=== PATIENT | female | born 1990 | race Caucasian/White ===

== ENCOUNTER 2016-11-26 02:32 | Emergency (ER) | payer SELFPAY ==
[2016-11-26 02:56] VITALS: BP 126/79; PULSE 88; TEMP 97.6; BMI 29.1
[2016-11-26 03:00] LABS: URINE APPEARANCE CLOUDY; URINE BILIRUBIN NEGATIVE (NEGATIVE); URINE BLOOD NEGATIVE (NEGATIVE); URINE COLOR YELLOW; URINE GLUCOSE (UA) NEGATIVE (NEGATIVE); URINE KETONE NEGATIVE (NEGATIVE); URINE NITRITE NEGATIVE (NEGATIVE); URINE PROTEIN NEGATIVE (NEGATIVE); URINE UROBILINOGEN NEGATIVE E.U./dl (0.2-1.0)
[2016-11-26 03:04] LABS: URINE LEUK ESTERASE 1+ (NEGATIVE)
[2016-11-26 03:05] LABS: URINE BACTERIA RARE /hpf (NONE SEEN); URINE MUCUS FEW; URINE RBC 2 /hpf (0-3); URINE WBC 5 /hpf (3-5)
--- NOTE | 2016-11-26 03:10 | PDOC ---
History of Present Illness - General History Source: Patient Exam Limitations: No Limitations - History of Present Illness Initial Comments: 11/26/16 03:36 The patient is a 26 year old female with no significant past medical history who presents to the ED for 2 months of persistent abdominal pain. Patient reports she initially developed pain to the pelvic region that has now radiated up to the left upper quadrant. She describes her pain as a weird feeling with associated nausea, but no vomiting or diarrhea. She also reports decreased appetite. No exacerbating or alleviating factors. The patient denies fever, chills, cough, SOB, chest pain, and palpitations. The patient denies dysuria, hematuria, urgency, and frequency. Allergies: NKDA Social History: No alcohol, tobacco, or drug use reported. Past Surgical History: None reported PCP: None reported <Erica Stallings - Last Filed: 11/26/16 03:36> - General History Source: Patient <Nguyễn Garcia - Last Filed: 11/26/16 04:14> - General Chief Complaint: Pain Stated Complaint: ABD PAIN Time Seen by Provider: 11/26/16 03:07 Past History <Erica Stallings - Last Filed: 11/26/16 03:36> - Past Medical History Anemia: No Asthma: No Cancer: No Cardiac Disorders: No CVA: No COPD: No CHF: No Dementia: No Diabetes: No GI Disorders: No Disorders: No HTN: No Hypercholesterolemia: No Liver Disease: No Suicide Attempt (Hx): No Seizures: No Thyroid Disease: No - Reproductive History Is Patient Now?: No (#): 1 Para: 0 - Immunization History Immunization Up to Date: Yes - Psycho/Social/Smoking Cessation Hx Anxiety: No Suicidal Ideation: No Smoking Status: No Smoking History: Never smoked Years of Tobacco Use: 4 Have you smoked in the past 12 months: No Number of Cigarettes Smoked Daily: 5 If you are a former smoker, when did you quit?: 2 WEEKS AGO Cigars Per Day: 0 Information on smoking cessation initiated: No 'Breaking Loose' booklet given: 03/23/14 Hx Alcohol Use: No Drug/Substance Use Hx: No Substance Use Type: None <Nguyễn Garcia - Last Filed: 11/26/16 04:14> - Past Medical History Allergies/Adverse Reactions: Allergies Allergy/AdvReac Type Severity Reaction Status Date / Time No Known Allergies Allergy Verified 11/26/16 02:45 Home Medications: Ambulatory Orders NK [No Known Home Medication] 11/26/16 Review of Systems - Review of Systems Able to Perform ROS?: Yes Comments:: 11/26/16 03:36 CONSTITUTIONAL: +decreased appetite Absent: fever, no chills, no fatigue EYES: Absent: visual changes ENT: Absent: ear pain, no sore throat CARDIOVASCULAR: Absent: chest pain, no palpitations RESPIRATORY: Absent: cough, no SOB GI: +abdominal pain, nausea Absent: no vomiting, no constipation, no diarrhea GENITOURINARY: Absent: dysuria, no frequency, no hematuria MUSCULOSKELETAL: Absent: back pain, no arthralgia, no myalgia SKIN: Absent: rash NEURO: Absent: headache <Erica Stallings - Last Filed: 11/26/16 03:36> *Physical Exam - Vital Signs Last Vital Signs Temp Pulse Resp BP Pulse Ox 97.6 F 88 20 126/79 99 11/26/16 02:45 11/26/16 02:45 11/26/16 02:45 11/26/16 02:45 11/26/16 02:45 - Physical Exam Comments: 11/26/16 03:36 GENERAL: Well-appearing, well-nourished. No apparent distress. HEENT: Normocephalic, atraumatic. PERRL, EOM intact. CARDIOVASCULAR: Normal S1, S2. Regular rate and rhythm. PULMONARY: Clear to auscultation bilaterally. ABDOMEN: Soft, non-distended, non-tender. EXTREMITIES: Normal ROM in all four extremities. No gross deformities. SKIN: Warm, dry. No rash NEUROLOGICAL: No focal neurological deficits. <Erica Stallings - Last Filed: 11/26/16 03:36> - Vital Signs Last Vital Signs Temp Pulse Resp BP Pulse Ox 97.6 F 88 20 126/79 99 11/26/16 02:45 11/26/16 02:45 11/26/16 02:45 11/26/16 02:45 11/26/16 02:45 <Nguyễn Garcia - Last Filed: 11/26/16 04:14> ED Treatment Course - LABORATORY CBC & Chemistry Diagram: 11/26/16 03:19 11/26/16 03:19 - ADDITIONAL ORDERS Additional order review: Laboratory Results 11/26/16 02:51 Urine Color Yellow Urine Appearance Cloudy Urine pH 5.0 Urine Protein Negative Urine Glucose (UA) Negative Urine Ketones Negative Urine Blood Negative Urine Nitrite Negative Urine Bilirubin Negative Urine Urobilinogen Negative Ur Leukocyte Esterase 1+ H Urine RBC 2 Urine WBC 5 Ur Epithelial Cells Many Urine Bacteria Rare Urine Mucus Few Urine HCG, Qual Negative 11/26/16 03:19 RBC 4.81 MCV 88.7 MCHC 33.0 RDW 13.4 MPV 8.7 Neutrophils % 70.0 Lymphocytes % 23.9 Monocytes % 4.3 Eosinophils % 1.3 Basophils % 0.5 - Medications Given in the ED: ED Medications Discontinued Medications Generic Name Dose Route Start Last Admin Trade Name Tarunq PRN Reason Stop Dose Admin Metoclopramide HCl 10 mg 11/26/16 03:14 11/26/16 03:23 Reglan Injection - IVPUSH 11/26/16 03:15 10 mg ONCE ONE Administration <Erica Stallings - Last Filed: 11/26/16 03:36> - LABORATORY CBC & Chemistry Diagram: 11/26/16 03:19 11/26/16 03:19 - ADDITIONAL ORDERS Additional order review: Laboratory Results 11/26/16 02:51 Urine Color Yellow Urine Appearance Cloudy Urine pH 5.0 Urine Protein Negative Urine Glucose (UA) Negative Urine Ketones Negative Urine Blood Negative Urine Nitrite Negative Urine Bilirubin Negative Urine Urobilinogen Negative Ur Leukocyte Esterase 1+ H <Nguyễn Garcia - Last Filed: 11/26/16 04:14> Medical Decision Making - Medical Decision Making 11/26/16 04:12 Dr. Garcia: The scribe's documentation has been prepared under my direction and personally reviewed by me in its entirery. I confirm that the note above accurately reflects all work, treatment, procedures, and medical decision making performed by me. Pt feels better. PT will be discharged and follow up with her pcp or the doctor referred to her <Nguyễn Garcia - Last Filed: 11/26/16 04:14> *DC/Admit/Observation/Transfer - Attestations Scribe Attestion: 11/26/16 03:36 Documentation prepared by Erica Stallings, acting as certified medical aide for Nguynễ Garcia MD/. <Erica Stallings - Last Filed: 11/26/16 03:36> - Discharge Dispostion Admit: No <Nguyễn Garcia - Last Filed: 11/26/16 04:14> Diagnosis at time of Disposition: Abdominal pain Qualifiers: Abdominal location: generalized Qualified Code(s): R10.84 - Generalized abdominal pain - Discharge Dispostion Disposition: HOME Condition at time of disposition: Stable - Referrals Referrals: Michaela Merino MD [Staff Physician] - Federico Sage DO [Staff Physician] - - Patient Instructions Printed Discharge Instructions: DI for Abdominal Pain-Adult
[2016-11-26] MEDS ORDERED: METOCLOPRAMIDE HCL INJECTION 10 MG/2 ML VIAL IVPUSH ONE (03:14)
[2016-11-26] MEDS ORDERED: SODIUM CHLORIDE 1,000 ML IV STA (03:14)
[2016-11-26 03:23] LABS: BASOPHIL 0.5 % (0-2.0); EOSINOPHIL 1.3 % (0-4.5); MCH 29.3 pg (25.7-33.7); MEAN CELL VOLUME 88.7 fl (80-96); MEAN PLT VOLUME 8.7 fl (7.5-11.1); PLATELET COUNT 223 K/MM3 (134-434); RDW 13.4 % (11.6-15.6); WHITE BLOOD COUNT 12.1 K/mm3 (4.0-10.0)
[2016-11-26] MEDS ORDERED: METOCLOPRAMIDE HCL INJECTION 10 MG/2 ML VIAL ONE (03:23)
[2016-11-26 03:56] LABS: ALBUMIN 3.8 g/dl (3.4-5.0); ANION GAP 7 (8-16); BILIRUBIN,TOTAL 0.3 mg/dL (0.2-1.0); CALCIUM 9.1 mg/dL (8.5-10.1); CO2 28 mmol/L (21-32); CREATININE 0.9 mg/dL (0.55-1.02); GLUCOSE,RANDOM 145 mg/dL (74-106); SGOT/AST 16 U/L (15-37); SGPT/ALT 24 U/L (12-78); TOT PROT 7.3 g/dl (6.4-8.2)
[2016-11-26 03:59] LABS: ALK PHOS 114 U/L (45-117)
== END 2016-11-26 04:19 | disposition home or self-care (01) ==
LOC: JER 02:32
PROC: 3E033GC Introduction of Other Therapeutic Substance into Peripheral Vein, Percutaneous Approach (ICD-10-PCS; principal; 2016-11-26)
DX: R10.84 Generalized abdominal pain (principal)
CPT/HCPCS: 36415; 80053; 81003; 81015; 84702; 84703; 85025; 87086; 99283-25

== ENCOUNTER 2019-01-18 14:10 | Emergency (ER) | payer SELFPAY ==
[2019-01-18 14:15] VITALS: BP 116/71; PULSE 114; TEMP 98.4; BMI 25.0
[2019-01-18] MEDS ORDERED: ACETAMINOPHEN 325 MG TABLET (FP) PO ONE (14:32)
--- NOTE | 2019-01-18 14:53 | PDOC ---
History of Present Illness - General Chief Complaint: Pain, Acute Stated Complaint: ABD PAIN Time Seen by Provider: 01/18/19 14:26 History Source: Patient Exam Limitations: No Limitations Past History - Past Medical History Allergies/Adverse Reactions: Allergies Allergy/AdvReac Type Severity Reaction Status Date / Time No Known Allergies Allergy Verified 01/18/19 14:15 Home Medications: Ambulatory Orders NK [No Known Home Medication] 11/26/16 Anemia: No Asthma: No Cancer: No Cardiac Disorders: No CVA: No COPD: No CHF: No Dementia: No Diabetes: No GI Disorders: No Disorders: No HTN: No Hypercholesterolemia: No Liver Disease: No Seizures: No Thyroid Disease: No - Reproductive History (#): 1 Para: 0 - Immunization History Immunization Up to Date: Yes - Suicide/Smoking/Psychosocial Hx Smoking Status: No Smoking History: Current every day smoker Years of Tobacco Use: 4 Have you smoked in the past 12 months: Yes Number of Cigarettes Smoked Daily: 10 If you are a former smoker, when did you quit?: 2 WEEKS AGO Cigars Per Day: 0 Information on smoking cessation initiated: No 'Breaking Loose' booklet given: 03/23/14 Hx Alcohol Use: Yes Drug/Substance Use Hx: Yes Substance Use Type: None *Physical Exam - Vital Signs Last Vital Signs Temp Pulse Resp BP Pulse Ox 98.4 F 114 H 14 116/71 98 01/18/19 14:12 01/18/19 14:12 01/18/19 14:12 01/18/19 14:12 01/18/19 14:12 - Physical Exam General Appearance: No: Apparent Distress Respiratory/Chest: positive: Lungs Clear, Normal Breath Sounds. negative: Respiratory Distress Cardiovascular: positive: Regular Rhythm, Regular Rate, S1, S2. negative: Murmur Gastrointestinal/Abdominal: positive: Normal Bowel Sounds, Soft. 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 Did a home test yesterday and it was positive. Denies fever, sob, cp, vomiting, diarrhea, urinary complaints, vaginal bleeding. 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 Dia - recommends patient return to ED in 2 days for repeat blood work 01/18/19 18:06 *DC/Admit/Observation/Transfer Diagnosis at time of Disposition: Abdominal pain affecting - Discharge Dispostion Disposition: HOME Condition at time of disposition: Stable Decision to Admit order: No - Referrals - Patient Instructions Printed Discharge Instructions: DI for Abdominal Pain -- Early Additional Instructions: Thank you for choosing [facility]. It was a pleasure taking care of you. Your hormone levels are low and there is no current evidence of . This could be early Please return to ED in 2 days for repeat blood work Return to the Emergency Department if your symptoms worsen or persist, have heavy vaginal bleeding or other concerning symptoms. - Post Discharge Activity
[2019-01-18 15:20] LABS: BASO % 0.5 % (0-2.0); EOS % 0.6 % (0-4.5); HEMATOCRIT 40.1 % (32.4-45.2); HEMOGLOBIN 13.5 GM/dL (10.7-15.3); LYMPH % 24.9 % (8-40); MCH 30.5 pg (25.7-33.7); MCHC 33.7 g/dl (32.0-36.0); MEAN CELL VOLUME 90.4 fl (80-96); MONO % 7.2 % (3.8-10.2); NEUT % 66.8 % (42.8-82.8); PLATELET COUNT 238 K/MM3 (134-434); RBC 4.43 M/mm3 (3.60-5.2)
[2019-01-18 15:30] LABS: URINE APPEARANCE CLEAR; URINE BILIRUBIN NEGATIVE (NEGATIVE); URINE COLOR YELLOW; URINE GLUCOSE (UA) NEGATIVE (NEGATIVE); URINE KETONE TRACE (NEGATIVE); URINE LEUK ESTERASE NEGATIVE (NEGATIVE); URINE NITRITE NEGATIVE (NEGATIVE); URINE PROTEIN NEGATIVE (NEGATIVE)
[2019-01-18] MEDS ORDERED: ACETAMINOPHEN 325 MG TABLET (FP) ONE (15:37)
[2019-01-18 16:27] LABS: ALBUMIN 3.9 g/dl (3.4-5.0); BILIRUBIN,TOTAL 0.4 mg/dL (0.2-1); BLOOD UREA NITROGEN 12.9 mg/dL (7-18); CALCIUM 9.3 mg/dL (8.5-10.1); CREATININE 0.8 mg/dL (0.55-1.3); POTASSIUM 4.7 mmol/L (3.5-5.1)
== END 2019-01-18 18:31 | disposition home or self-care (01) ==
LOC: JER 14:10
DX: O26.899 Other specified pregnancy related conditions, unspecified trimester (principal); Z3A.00 Weeks of gestation of pregnancy not specified
CPT/HCPCS: 36415; 76830-TC; 80053; 81003; 84702; 84703; 85025; 99284-25

== ENCOUNTER 2019-01-20 13:21 | Emergency (ER) | payer SELFPAY ==
--- NOTE | 2019-01-20 13:30 | PDOC ---
Rapid Medical Evaluation Chief Complaint: Pain, Acute Time Seen by Provider: 01/20/19 13:28 Medical Evaluation: Allergies Allergy/AdvReac Type Severity Reaction Status Date / Time No Known Allergies Allergy Verified 01/20/19 13:27 01/20/19 13:28 HPI: Bounce back from 2 days ago here for ? f/u here for repeat labs PE: No gross deficits ORDERS: B quant Discharge Disposition - Diagnosis - Referrals - Patient Instructions - Post Discharge Activity
[2019-01-20 13:31] VITALS: BP 138/76; PULSE 99; TEMP 98.5; BMI 25.0
--- NOTE | 2019-01-20 14:04 | PDOC ---
History of Present Illness - General Chief Complaint: Pain, Acute Stated Complaint: ABD. PAIN/ PERGNANT Time Seen by Provider: 01/20/19 13:28 History Source: Patient - History of Present Illness Initial Comments: 01/20/19 14:00 29 year old female , + home test, confirmed 2 days ago here, returned today for bhcg test. Patient complained of abdominal pain 3 days ago that has now subsided some but still present. Denies vaginal bleeding at present. Denies dizziness or dysuria. Timing/Duration: other (3 days) Severity: mild Modifying Factors: improves with: other (no intervention) Associated Symptoms: reports: denies symptoms Aspirin Received prior to arrival: Yes: no aspirin today Asa Contraindications(Core Measure): No: Allergy Beta Khadar Contraindications(Core Measure): Yes: Not Prescribed Beta Khadar Given by EMS(Core Measure): No Beta Khadar Taken at Home(Core Measure): No Beta Khadar Not Indicated at this Time(Core Measure): No Past History - Travel Traveled outside of the country in the last 30 days: No Close contact w/someone who was outside of country & ill: No - Past Medical History Allergies/Adverse Reactions: Allergies Allergy/AdvReac Type Severity Reaction Status Date / Time No Known Allergies Allergy Verified 01/20/19 13:32 Home Medications: Ambulatory Orders Vit No.124/Iron/Folic [ Vitamin Tablet] 1 each PO DAILY #90 tablet 01/20/19 Anemia: No Asthma: No Cancer: No Cardiac Disorders: No CVA: No COPD: No CHF: No Dementia: No Diabetes: No GI Disorders: No Disorders: No HTN: No Hypercholesterolemia: No Liver Disease: No Seizures: No Thyroid Disease: No - Reproductive History (#): 1 Para: 0 - Immunization History Immunization Up to Date: Yes - Suicide/Smoking/Psychosocial Hx Smoking Status: No Smoking History: Never smoked Years of Tobacco Use: 4 Have you smoked in the past 12 months: Yes Number of Cigarettes Smoked Daily: 10 If you are a former smoker, when did you quit?: 2 WEEKS AGO Cigars Per Day: 0 Information on smoking cessation initiated: No 'Breaking Loose' booklet given: 03/23/14 Hx Alcohol Use: No Drug/Substance Use Hx: No Substance Use Type: None Review of Systems - Review of Systems Able to Perform ROS?: Yes Is the patient limited Guamanian proficient: No Constitutional: No: Chills, Fever HEENTM: No: Nose Pain, Nose Congestion, Mouth Pain Respiratory: No: Shortness of Breath, Stridor Cardiac (ROS): No: Chest Pain, Lightheadedness ABD/GI: Yes: Abdominal cramping. No: Constipated, Diarrhea, Poor Appetite : No: Burning, Hematuria, Pain, Urgency Neurological: No: Headache, Numbness, Paresthesia Psychiatric: No: Frequent Crying, Stressors *Physical Exam - Vital Signs Last Vital Signs Temp Pulse Resp BP Pulse Ox 98.5 F 99 H 16 138/76 100 01/20/19 13:29 01/20/19 13:29 01/20/19 13:29 01/20/19 13:29 01/20/19 13:29 - Physical Exam General Appearance: Yes: Nourished HEENT: positive: TMs Normal, Pharynx Normal Neck: positive: Supple. negative: Lymphadenopathy (R), Lymphadenopathy (L), Tender midline Respiratory/Chest: positive: Lungs Clear Cardiovascular: positive: Regular Rhythm, Regular Rate Gastrointestinal/Abdominal: positive: Normal Bowel Sounds Extremity: positive: Normal Capillary Refill Neurologic: positive: Fully Oriented, Alert Medical Decision Making - Medical Decision Making 01/20/19 14:05 29 year old female , + home test, confirmed 2 days ago here, returned today for bhcg test. Plan bhcg sent 01/20/19 14:43 Bhcg 01/18/18 39.2 today 106.8 referred for rx: vitamins *DC/Admit/Observation/Transfer Diagnosis at time of Disposition: Qualifiers: Weeks of gestation: less than 8 weeks Qualified Code(s): Z3A.01 - Less than 8 weeks gestation of - Discharge Dispostion Disposition: HOME Condition at time of disposition: Good - Prescriptions Prescriptions: Vit No.124/Iron/Folic [ Vitamin Tablet] 1 each PO DAILY #90 tablet - Referrals Referrals: Elijah Nance MD [Staff Physician] - (call legal editor for follow up appointment. May call your own if you have ) - Patient Instructions Printed Discharge Instructions: Medications and , Managing Symptoms of Additional Instructions: Please return to emergency department for worsening pain, or if spotting immediately Call your stretcher drier operator/ob for appointment and follow up. Follow up in 2 days for bhcg and if symptoms continue 01/18 [facility] [place] 39.2 01/20 [facility] [place] 106.8 - Post Discharge Activity Forms/Work/School Notes: Back to Work
== END 2019-01-20 14:53 | disposition home or self-care (01) ==
LOC: JERFT 13:21
DX: Z32.01 Encounter for pregnancy test, result positive (principal); Z3A.01 Less than 8 weeks gestation of pregnancy; Z87.891 Personal history of nicotine dependence
CPT/HCPCS: 36415; 84702; 99282-25

== ENCOUNTER 2019-01-25 15:19 | Emergency (ER) | payer SELFPAY ==
--- NOTE | 2019-01-25 15:23 | PDOC ---
Rapid Medical Evaluation Chief Complaint: Revisit, Lab Variance Time Seen by Provider: 01/25/19 15:21 Medical Evaluation: Allergies Allergy/AdvReac Type Severity Reaction Status Date / Time No Known Allergies Allergy Verified 01/20/19 13:32 01/25/19 15:22 HPI: Here for B quant lab work PE: No gross deficits ORDERS: Beta quant Discharge Disposition - Diagnosis - Referrals - Patient Instructions - Post Discharge Activity
[2019-01-25 15:25] VITALS: BP 97/73; PULSE 100; TEMP 98.9; BMI 25.0
--- NOTE | 2019-01-25 18:17 | PDOC ---
History of Present Illness - General Chief Complaint: Revisit, Lab Variance Stated Complaint: REVISIT Time Seen by Provider: 01/25/19 15:21 History Source: Patient Exam Limitations: No Limitations Past History - Travel Traveled outside of the country in the last 30 days: No Close contact w/someone who was outside of country & ill: No - Past Medical History Allergies/Adverse Reactions: Allergies Allergy/AdvReac Type Severity Reaction Status Date / Time No Known Allergies Allergy Verified 01/25/19 15:25 Home Medications: Ambulatory Orders Vit No.124/Iron/Folic [ Vitamin Tablet] 1 each PO DAILY #90 tablet 01/20/19 Anemia: No Asthma: No Cancer: No Cardiac Disorders: No CVA: No COPD: No CHF: No Dementia: No Diabetes: No GI Disorders: No Disorders: No HTN: No Hypercholesterolemia: No Liver Disease: No Seizures: No Thyroid Disease: No Other medical history: LMP 12/05/18 - Reproductive History (#): 1 Para: 0 - Immunization History Immunization Up to Date: Yes - Suicide/Smoking/Psychosocial Hx Smoking Status: No Smoking History: Current every day smoker Years of Tobacco Use: 4 Have you smoked in the past 12 months: Yes Number of Cigarettes Smoked Daily: 10 If you are a former smoker, when did you quit?: 2 WEEKS AGO Cigars Per Day: 0 Information on smoking cessation initiated: No 'Breaking Loose' booklet given: 03/23/14 Hx Alcohol Use: No Drug/Substance Use Hx: No Substance Use Type: None Review of Systems - Review of Systems Able to Perform ROS?: Yes Comments:: 01/25/19 19:17 CONSTITUTIONAL: Absent: fever, chills, diaphoresis, generalized weakness, malaise, loss of appetite HEENT: Absent: rhinorrhea, nasal congestion, throat pain, throat swelling, difficulty swallowing, mouth swelling, ear pain, eye pain, visual Changes CARDIOVASCULAR: Absent: chest pain, loss of consciousness, palpitations, irregular heart rate, peripheral edema RESPIRATORY: Absent: cough, shortness of breath, dyspnea with exertion, orthopnea, wheezing, stridor, hemoptysis GASTROINTESTINAL: Absent: abdominal pain, abdominal distension, nausea, vomiting, diarrhea, constipation, melena, hematochezia GENITOURINARY: Absent: dysuria, frequency, urgency, hesitancy, hematuria, flank pain, genital pain MUSCULOSKELETAL: Absent: myalgia, arthralgia, joint swelling SKIN: Absent: rash, itching, pallor HEMATOLOGIC/IMMUNOLOGIC: Absent: easy bleeding, easy bruising, lymphadenopathy, frequent infections ENDOCRINE: Absent: unexplained weight gain, unexplained weight loss, heat intolerance, cold intolerance NEUROLOGIC: Absent: headache, focal weakness or paresthesias, dizziness, unsteady gait, seizure, mental status changes, bladder or bowel incontinence PSYCHIATRIC: Absent: anxiety, depression, suicidal or homicidal ideation, hallucinations. Is the patient limited Kazakh proficient: No *Physical Exam - Vital Signs Last Vital Signs Temp Pulse Resp BP Pulse Ox 98.9 F 100 H 18 97/73 100 01/25/19 15:22 01/25/19 15:22 01/25/19 15:22 01/25/19 15:22 01/25/19 15:22 - Physical Exam Comments: 01/25/19 19:17 The patient is a 29-year-old female with no past medical history who presents to the ER today for repeat beta hCG and ultrasound. Patient denies vaginal bleeding or abdominal pain. She states that she has been here 2 times and since she has an early they want to make sure her beta hCG is going up. Last menstrual cycle was November 25. A/P: Abdomen is soft nontender with no rebound guarding or tenderness. Repeat beta HCG now 1400 up from 150 repeat ultrasound now with a questionable sac within the uterus Given increased hCG with a finding within the uterus suspect a viable Patient to follow-up with department of clinical social worker to obtain insurance and follow-up with an DEPUTY JUVENILE OFFICER Instructed to return for vaginal bleeding, abdominal pain or if she has any changes in her symptoms I discussed the physical exam findings, ancillary test results and final diagnoses with the patient. I answered all of the patient's questions. The patient was satisfied with the care received and felt comfortable with the discharge plan and treatment plan. The Patient agrees to follow up with the primary care physician/specialist within 24-72 hours. Return precautions were given. ED Treatment Course - ADDITIONAL ORDERS Additional order review: Laboratory Results 01/25/19 16:04 Beta HCG, Quant 1456.2 - RADIOLOGY Radiology Studies Ordered: Category Date Time Status TRANSVAGINAL US PREG [US] Stat Ultrasound 01/25/19 16:47 Completed *DC/Admit/Observation/Transfer Diagnosis at time of Disposition: Qualifiers: Weeks of gestation: less than 8 weeks Qualified Code(s): Z3A.01 - Less than 8 weeks gestation of - Discharge Dispostion Disposition: HOME Condition at time of disposition: Stable Decision to Admit order: No - Referrals Referrals: Liana Sellers MD [Staff Physician] - - Patient Instructions Printed Discharge Instructions: DI for Abdominal Pain -- Early Additional Instructions: Your beta-hCG is now 1400. This is up from 145 days ago. Your ultrasound did show a saclike structure in the uterus Your most likely with an intrauterine . Please follow-up with department of clinical social worker to obtain Medicaid so you can follow-up with an DEPUTY JUVENILE OFFICER. Return to the ER for abdominal pain, vaginal bleeding, increased vomiting or if you have any changes in your symptoms. - Post Discharge Activity
== END 2019-01-25 18:10 | disposition home or self-care (01) ==
LOC: JERFT 15:19
DX: O26.891 Other specified pregnancy related conditions, first trimester (principal); Z3A.01 Less than 8 weeks gestation of pregnancy
CPT/HCPCS: 36415; 76817-TC; 84702; 99281-25

== ENCOUNTER 2019-02-01 12:42 | Emergency (ER) | payer SELFPAY ==
[2019-02-01 12:56] VITALS: BP 121/89; PULSE 61; TEMP 98.8; BMI 25.0
--- NOTE | 2019-02-01 12:57 | PDOC ---
Rapid Medical Evaluation Medical Evaluation: Allergies Allergy/AdvReac Type Severity Reaction Status Date / Time No Known Allergies Allergy Verified 01/25/19 15:25 02/01/19 12:52 Pt presents to the ER for repeat beta HCG testing. Seen on 01/25 for vaginal bleeding. US shows an unspecific sac in the uterus. Beta at that time was in the 1000's. Exam: NAD, ambulatory Orders: Lab, TVUS Pt to proceed to the ER for further evaluation Discharge Disposition - Diagnosis Qualifiers: Weeks of gestation: less than 8 weeks Qualified Code(s): Z3A.01 - Less than 8 weeks gestation of - Referrals - Patient Instructions - Post Discharge Activity
--- NOTE | 2019-02-01 13:48 | PDOC ---
History of Present Illness - General Chief Complaint: Revisit, Lab Variance Stated Complaint: EVALUATION Time Seen by Provider: 02/01/19 12:57 History Source: Patient Exam Limitations: Clinical Condition - History of Present Illness Initial Comments: 02/01/19 13:45 Patient with no significant past medical history LMP November 25 present with for repeat beta hCG and ultrasound status post presenting a week ago with vaginal spotting with beta hCG of 1400 and no clear IUP. Patient denies vaginal bleeding , abdominal pain or pelvic pains. Denies any other symptoms. Patient followed back up here due to insurance issue as her insurance will not be effective until 5 days from now tablets OB care Timing/Duration: 1 week Past History - Past Medical History Allergies/Adverse Reactions: Allergies Allergy/AdvReac Type Severity Reaction Status Date / Time No Known Allergies Allergy Verified 02/01/19 12:56 Home Medications: Ambulatory Orders Vit No.124/Iron/Folic [ Vitamin Tablet] 1 each PO DAILY #90 tablet 01/20/19 Anemia: No Asthma: No Cancer: No Cardiac Disorders: No CVA: No COPD: No CHF: No Dementia: No Diabetes: No GI Disorders: No Disorders: No HTN: No Hypercholesterolemia: No Liver Disease: No Seizures: No Thyroid Disease: No - Reproductive History (#): 1 Para: 0 - Immunization History Immunization Up to Date: Yes - Suicide/Smoking/Psychosocial Hx Smoking Status: No Smoking History: Never smoked Years of Tobacco Use: 4 Have you smoked in the past 12 months: Yes Number of Cigarettes Smoked Daily: 10 If you are a former smoker, when did you quit?: 2 WEEKS AGO Cigars Per Day: 0 'Breaking Loose' booklet given: 03/23/14 Hx Alcohol Use: No Drug/Substance Use Hx: No Substance Use Type: None Review of Systems - Review of Systems Able to Perform ROS?: Yes Is the patient limited Turkmen proficient: No Constitutional: No: Chills, Fever, Malaise, Weakness HEENTM: No: Symptoms Reported Respiratory: No: Symptoms reported Cardiac (ROS): No: Symptoms Reported ABD/GI: No: Symptoms Reported, Nausea, Vomiting, Abdominal cramping : No: Symptoms Reported, Burning, Dysuria, Discharge, Frequency, Urgency, Other (vaginal bleeding) All Other Systems: Reviewed and Negative *Physical Exam - Vital Signs Last Vital Signs Temp Pulse Resp BP Pulse Ox 98.8 F 61 18 121/89 99 02/01/19 12:53 02/01/19 12:53 02/01/19 12:53 02/01/19 12:53 02/01/19 12:53 - Physical Exam General Appearance: Yes: Nourished, Appropriately Dressed. No: Apparent Distress HEENT: positive: Normal ENT Inspection Neck: positive: Supple Respiratory/Chest: positive: Lungs Clear, Normal Breath Sounds. negative: Respiratory Distress, Accessory Muscle Use Cardiovascular: positive: Regular Rhythm, Regular Rate Gastrointestinal/Abdominal: positive: Normal Bowel Sounds, Flat, Soft, Organomegaly. negative: Tender Musculoskeletal: positive: Normal Inspection. negative: CVA Tenderness Extremity: positive: Normal Inspection Integumentary: positive: Normal Color Neurologic: positive: Fully Oriented, Alert, Normal Mood/Affect, Normal Response Medical Decision Making - Medical Decision Making 02/01/19 13:46 Patient with no significant past medical history LMP November 25 present with for repeat beta hCG and ultrasound status post presenting a week ago with vaginal spotting with beta hCG of 1400 and no clear IUP. Patient denies vaginal bleeding , abdominal pain or pelvic pains. Denies any other symptoms. Patient followed back up here due to insurance issue as her insurance will not be effective until 5 days from now tablets OB care The hCG labs ordered and transvaginal ultrasound ordered 02/01/19 14:09 Transvaginal ultrasound shows IUP with pole and crown rump length of 0.23 cm consistent with 5.5 weeks and beta hCG is still pending 02/01/19 14:58 [place] [id number]. results discussed with patient and pt advised to f/u with OB to establish care. Patient has apt with her OB next week. Patient stable for discharge and strict f/u instructions discussed including vagina bleeding and worsening pelvic pain *DC/Admit/Observation/Transfer Diagnosis at time of Disposition: Qualifiers: Weeks of gestation: less than 8 weeks Qualified Code(s): Z3A.01 - Less than 8 weeks gestation of - Discharge Dispostion Disposition: HOME Condition at time of disposition: Stable Decision to Admit order: No - Referrals - Patient Instructions Printed Discharge Instructions: Common Discomforts and Bodily Changes During Additional Instructions: Your lab work increased appropriately as discussed. Your ultrasound sound shows early of 6wks 5 days. Follow-up with OB to establish care as discussed - Post Discharge Activity
== END 2019-02-01 14:41 | disposition home or self-care (01) ==
LOC: JERFT 12:42
DX: O26.891 Other specified pregnancy related conditions, first trimester (principal); O36.80X0 Pregnancy with inconclusive fetal viability, not applicable or unspecified; Z32.01 Encounter for pregnancy test, result positive; Z3A.01 Less than 8 weeks gestation of pregnancy
CPT/HCPCS: 36415; 76817-TC; 84702; 99281-25

== ENCOUNTER 2019-02-22 13:15 | Emergency (ER) | payer OTHER ==
--- NOTE | 2019-02-22 13:18 | PDOC ---
Rapid Medical Evaluation Medical Evaluation: Allergies Allergy/AdvReac Type Severity Reaction Status Date / Time No Known Allergies Allergy Verified 02/01/19 12:56 I have performed a brief in-person evaluation of this patient. The patient presents with a chief complaint of: is 8 weeks , c/o lower abd cramp x 2 days; also with spotting since start of , but 2 days, bleeding got heavier; saw OB around 1.5-2 weeks ago Pertinent physical exam findings: In NAD, pelvic deferred I have ordered the following: Labs, US The patient will proceed to the ED for further evaluation. 02/22/19 13:16
[2019-02-22 13:57] VITALS: BP 133/62; PULSE 89; TEMP 98.4; BMI 25.0
[2019-02-22 14:45] LABS: BASO % 0.5 % (0-2.0); EOS % 0.5 % (0-4.5); HEMATOCRIT 36.9 % (32.4-45.2); HEMOGLOBIN 12.5 GM/dL (10.7-15.3); LYMPH % 18.3 % (8-40); MCH 30.2 pg (25.7-33.7); MCHC 33.9 g/dl (32.0-36.0); MEAN CELL VOLUME 88.9 fl (80-96); MEAN PLT VOLUME 8.6 fl (7.5-11.1); MONO % 5.9 % (3.8-10.2); NEUT % 74.8 % (42.8-82.8); PLATELET COUNT 213 K/MM3 (134-434); RBC 4.15 M/mm3 (3.60-5.2); RDW 12.7 % (11.6-15.6)
[2019-02-22 14:51] LABS: EPI CELLS 6.1 /HPF (0-5/HPF); HYALINE CASTS 8 /lpf (0-8); URINE APPEARANCE CLEAR; URINE BACTERIA 38.4 /hpf (NEGATIVE); URINE BILIRUBIN 1+ (NEGATIVE); URINE COLOR DK YELLOW; URINE GLUCOSE (UA) NEGATIVE (NEGATIVE); URINE KETONE TRACE (NEGATIVE); URINE LEUK ESTERASE TRACE (NEGATIVE); URINE NITRITE NEGATIVE (NEGATIVE); URINE PROTEIN TRACE (NEGATIVE); URINE RBC 2 /hpf (0-4); URINE WBC 2 /hpf (0-5)
[2019-02-22] MEDS ORDERED: ONDANSETRON *ODT* 4 MG TABLET SL ONE (15:08)
[2019-02-22 15:20] LABS: ALBUMIN 3.8 g/dl (3.4-5.0); BILIRUBIN,TOTAL 0.4 mg/dL (0.2-1); BLOOD UREA NITROGEN 11.1 mg/dL (7-18); CALCIUM 9.1 mg/dL (8.5-10.1); CREATININE 0.6 mg/dL (0.55-1.3); POTASSIUM 4.2 mmol/L (3.5-5.1); TOT PROT 6.6 g/dl (6.4-8.2)
[2019-02-22] MEDS ORDERED: ONDANSETRON *ODT* 4 MG TABLET ONE (15:24)
--- NOTE | 2019-02-22 16:19 | PDOC ---
History of Present Illness - General Chief Complaint: Pain Stated Complaint: LWR QUAD ABD PAIN Time Seen by Provider: 02/22/19 13:16 History Source: Patient Exam Limitations: No Limitations - History of Present Illness Travel History: No Initial Comments: 02/22/19 15:14 29-year-old female approximately 8 weeks presents ED with complaints of mild suprapubic cramping and spotting noted this morning. Patient states has had an ultrasound done approximately one week ago which showed a normal IUP. Patient states is followed by Dr. Hill and denies any urinary complaints, back pain, diarrhea, or fever. Timing/Duration: reports: intermittent Quality: reports: mild, cramping Abdominal Pain Onset Location: reports: suprapubic Pain Radiation: reports: no radiation Activities at Onset: reports: none Aggravating Factors: improves with: None Alleviating Factors: improves with: None Past History - Travel Traveled outside of the country in the last 30 days: No Close contact w/someone who was outside of country & ill: No - Past Medical History Allergies/Adverse Reactions: Allergies Allergy/AdvReac Type Severity Reaction Status Date / Time No Known Allergies Allergy Verified 02/22/19 13:31 Home Medications: Ambulatory Orders Vit No.124/Iron/Folic [ Vitamin Tablet] 1 each PO DAILY #90 tablet 01/20/19 Anemia: No Asthma: No Cancer: No Cardiac Disorders: No CVA: No COPD: No CHF: No Dementia: No Diabetes: No GI Disorders: No Disorders: No HTN: No Hypercholesterolemia: No Liver Disease: No Seizures: No Thyroid Disease: No - Reproductive History (#): 1 Para: 0 - Immunization History Immunization Up to Date: Yes - Suicide/Smoking/Psychosocial Hx Smoking Status: No Smoking History: Never smoked Years of Tobacco Use: 4 Have you smoked in the past 12 months: No Number of Cigarettes Smoked Daily: 10 If you are a former smoker, when did you quit?: 2 WEEKS AGO Cigars Per Day: 0 Information on smoking cessation initiated: No 'Breaking Loose' booklet given: 03/23/14 Hx Alcohol Use: No Drug/Substance Use Hx: No Substance Use Type: None Patient Lives Alone: No Lives with/in: spouse/SO Review of Systems - Review of Systems Able to Perform ROS?: Yes Constitutional: No: Symptoms Reported HEENTM: No: Symptoms Reported Respiratory: No: Symptoms reported Cardiac (ROS): No: Symptoms Reported ABD/GI: Yes: Abdominal cramping : Yes: Discharge Musculoskeletal: No: Symptoms Reported Integumentary: No: Symptoms Reported Neurological: No: Symptoms reported Hematologic/Lymphatic: No: Symptoms Reported *Physical Exam - Vital Signs Last Vital Signs Temp Pulse Resp BP Pulse Ox 98.4 F 89 16 133/62 96 02/22/19 13:20 02/22/19 13:20 02/22/19 13:20 02/22/19 13:20 02/22/19 13:20 - Physical Exam General Appearance: Yes: Nourished, Appropriately Dressed. No: Apparent Distress HEENT: positive: EOMI. negative: Pale Conjunctivae Neck: positive: Normal Thyroid Respiratory/Chest: positive: Lungs Clear, Normal Breath Sounds. negative: Respiratory Distress, Accessory Muscle Use Cardiovascular: positive: Regular Rhythm, Regular Rate. negative: Murmur Female Pelvic Exam: positive: vaginal bleeding (light brown in minimal amount) Gastrointestinal/Abdominal: positive: Soft, Tenderness (midsuprapubic) Musculoskeletal: negative: CVA Tenderness Extremity: positive: Normal Inspection Integumentary: positive: Normal Color, Warm, Moist Neurologic: positive: Motor Strength 5/5 (ambulatory) ED Treatment Course - LABORATORY CBC & Chemistry Diagram: 02/22/19 14:28 02/22/19 14:28 - ADDITIONAL ORDERS Additional order review: Laboratory Results 02/22/19 02/22/19 14:28 14:25 Sodium 136 Potassium 4.2 Chloride 102 Carbon Dioxide 27 Anion Gap 6 L BUN 11.1 Creatinine 0.6 Est GFR (CKD-EPI)AfAm 143.77 Est GFR (CKD-EPI)NonAf 124.04 Random Glucose 80 Calcium 9.1 Total Bilirubin 0.4 AST 12 L ALT 31 Alkaline Phosphatase 66 Total Protein 6.6 Albumin 3.8 Urine Color Dk yellow Urine Appearance Clear Urine pH 6.0 Ur Specific [place] 1.036 H Urine Protein Trace Urine Glucose (UA) Negative Urine Ketones Trace H Urine Blood Negative Urine Nitrite Negative Urine Bilirubin 1+ H Urine Urobilinogen 1.0 Ur Leukocyte Esterase Trace Urine WBC (Auto) 2 Urine RBC (Auto) 2 Urine Casts (Auto) 8 U Epithel Cells (Auto) 6.1 Urine Bacteria (Auto) 38.4 02/22/19 14:28 RBC 4.15 MCV 88.9 MCHC 33.9 RDW 12.7 MPV 8.6 Neutrophils % 74.8 Lymphocytes % 18.3 D Monocytes % 5.9 Eosinophils % 0.5 Basophils % 0.5 Medical Decision Making - Medical Decision Making 02/22/19 15:17 Chief complaint: Minutes. Cramping since same accompanied with spotting. Patient is currently 8 weeks . No other complaints. Exam. Patient with mild mid tenderness on exam with light brown to pink discharge or minimal amount Plan: Labs, urine and ultrasound ordered along with Zofran secondary to mild nausea which patient states has experienced since onset of 02/22/19 16:20 Laboratory Tests 02/22/19 02/22/19 02/22/19 14:25 14:28 14:28 WBC 11.0 H Hgb 12.5 Hct 36.9 Absolute Neuts (auto) 8.3 H Sodium Potassium Chloride Carbon Dioxide Anion Gap BUN Creatinine Beta HCG, Quant Pending Ur Specific [place] 1.036 H Urine Ketones Trace H Urine Nitrite Negative Urine Bilirubin 1+ H Urine Urobilinogen 1.0 Urine WBC (Auto) 2 Urine RBC (Auto) 2 Blood Type Antibody Screen 02/22/19 02/22/19 14:28 14:28 WBC Hgb Hct Absolute Neuts (auto) Sodium 136 Potassium 4.2 Chloride 102 Carbon Dioxide 27 Anion Gap 6 L BUN 11.1 Creatinine 0.6 Beta HCG, Quant Ur Specific [place] Urine Ketones Urine Nitrite Urine Bilirubin Urine Urobilinogen Urine WBC (Auto) Urine RBC (Auto) Blood Type O POSITIVE Antibody Screen Negative Ultrasound shows single Live intrauterine measuring 8 weeks 4 days with heart rate of 148 bpm. Zofran patient states feeling better after receiving Zofran *DC/Admit/Observation/Transfer Diagnosis at time of Disposition: Threatened - Discharge Dispostion Disposition: HOME Condition at time of disposition: Improved - Referrals Referrals: Junito Kate [Primary Care Provider] - - Patient Instructions Printed Discharge Instructions: DI for Threatened Additional Instructions: May take Tylenol for discomfort. Please follow-up with your [facility] and return to ED if symptoms worsen - Post Discharge Activity
== END 2019-02-22 16:56 | disposition home or self-care (01) ==
LOC: JER 13:15
DX: O26.891 Other specified pregnancy related conditions, first trimester (principal); O20.0 Threatened abortion; Z3A.08 8 weeks gestation of pregnancy
CPT/HCPCS: 36415; 76817-TC; 80053; 81003; 84702; 85025; 86850; 86900; 86901; 87086; 99282-25

== ENCOUNTER 2019-03-10 15:43 | Emergency (ER) | payer OTHER ==
[2019-03-10 15:49] VITALS: BP 111/64; PULSE 86; TEMP 97.9; BMI 55.7
--- NOTE | 2019-03-10 15:50 | PDOC ---
Rapid Medical Evaluation Chief Complaint: Pain, Acute Time Seen by Provider: 03/10/19 15:46 Medical Evaluation: Allergies Allergy/AdvReac Type Severity Reaction Status Date / Time No Known Allergies Allergy Verified 02/22/19 13:31 03/10/19 15:47 I have performed a brief in-person evaluation of this patient. The patient presents with a chief complaint of: 11 weeks preg and c/o cramping and yellow vag d/c - no bleeding , states has has had since beginning of preg, states cramping is new./ No bleeding or fevers, Pertinent physical exam findings: lmp 01/02/19= 11 weeks I have ordered the following: Urine The patient will proceed to the ED for further evaluation. Discharge Disposition - Diagnosis Vaginal discharge during - Discharge Dispostion Condition at time of disposition: Stable - Referrals - Patient Instructions - Post Discharge Activity
[2019-03-10 16:12] LABS: EPI CELLS 3.3 /HPF (0-5/HPF); HYALINE CASTS 1 /lpf (0-8); PH,URINE 6.5 (5.0-8.0); URINE APPEARANCE CLEAR; URINE BACTERIA 72.4 /hpf (NEGATIVE); URINE BILIRUBIN NEGATIVE (NEGATIVE); URINE COLOR YELLOW; URINE GLUCOSE (UA) NEGATIVE (NEGATIVE); URINE KETONE TRACE (NEGATIVE); URINE LEUK ESTERASE TRACE (NEGATIVE); URINE NITRITE NEGATIVE (NEGATIVE); URINE PROTEIN NEGATIVE (NEGATIVE); URINE RBC 1 /hpf (0-4); URINE UROBILINOGEN 0.2 mg/dL (0.2-1.0); URINE WBC 1 /hpf (0-5)
--- NOTE | 2019-03-10 17:18 | PDOC ---
History of Present Illness - General Chief Complaint: Pain, Acute Stated Complaint: 11 W PREG/ABD PAIN Time Seen by Provider: 03/10/19 15:46 History Source: Patient Exam Limitations: No Limitations Past History - Past Medical History Allergies/Adverse Reactions: Allergies Allergy/AdvReac Type Severity Reaction Status Date / Time No Known Allergies Allergy Verified 02/22/19 13:31 Home Medications: Ambulatory Orders Vit No.124/Iron/Folic [ Vitamin Tablet] 1 each PO DAILY #90 tablet 01/20/19 Ondansetron HCl [Zofran] 4 mg PO TID PRN #12 tablet 02/22/19 Anemia: No Asthma: No Cancer: No Cardiac Disorders: No CVA: No COPD: No CHF: No Dementia: No Diabetes: No GI Disorders: No Disorders: No HTN: No Hypercholesterolemia: No Liver Disease: No Seizures: No Thyroid Disease: No - Reproductive History Is Patient Now?: Yes (#): 3 Para: 0 - Immunization History Immunization Up to Date: Yes - Psycho Social/Smoking Cessation Hx Smoking Status: No Smoking History: Never smoked Years of Tobacco Use: 4 Have you smoked in the past 12 months: No Number of Cigarettes Smoked Daily: 10 If you are a former smoker, when did you quit?: 2 WEEKS AGO Cigars Per Day: 0 Information on smoking cessation initiated: No 'Breaking Loose' booklet given: 03/23/14 Hx Alcohol Use: No Drug/Substance Use Hx: No Substance Use Type: None *Physical Exam - Vital Signs Last Vital Signs Temp Pulse Resp BP Pulse Ox 97.9 F 86 18 111/64 99 03/10/19 15:45 03/10/19 15:45 03/10/19 15:45 03/10/19 15:45 03/10/19 15:45 - Physical Exam General Appearance: No: Apparent Distress Respiratory/Chest: positive: Lungs Clear, Normal Breath Sounds. negative: Respiratory Distress Cardiovascular: positive: Regular Rhythm, Regular Rate, S1, S2. negative: Murmur Female Pelvic Exam: positive: discharge (cottage like d/c). negative: CMT, adnexal tenderness, vaginal bleeding Gastrointestinal/Abdominal: positive: Normal Bowel Sounds, Tender (mild suprapubic discomfort), Soft. negative: Distended, Guarding, Rebound Neurologic: positive: Alert, Normal Mood/Affect ED Treatment Course - ADDITIONAL ORDERS Additional order review: Laboratory Results 03/10/19 15:59 Urine Color Yellow Urine Appearance Clear Urine pH 6.5 Ur Specific [place] 1.024 Urine Protein Negative Urine Glucose (UA) Negative Urine Ketones Trace H Urine Blood Negative Urine Nitrite Negative Urine Bilirubin Negative Urine Urobilinogen 0.2 Ur Leukocyte Esterase Trace Urine WBC (Auto) 1 Urine RBC (Auto) 1 Urine Casts (Auto) 1 U Epithel Cells (Auto) 3.3 Urine Bacteria (Auto) 72.4 Medical Decision Making - Medical Decision Making 29 y/o F (hx of 2 miscarriages), currently around 10 weeks , presents with slight suprapubic discomfort from yesterday along with nausea. Also mentions having whitish vaginal d/c since the start of her . Denies fever, sob, cp, vomiting, diarrhea, urinary complaints, vaginal bleeding. LNMP 01/02. Patient was last seen in ED 02/22 when she had TVUS confirming IUP. Urine negative POC pelvic US done - IUP noted again, FHR at 162 bpm Also with likely vaginal yeast infection - will treat with monistat 03/10/19 17:19 Discharge - Discharge Information Problems reviewed: Yes Clinical Impression/Diagnosis: Candidiasis Condition: Stable Disposition: HOME - Admission No - Additional Discharge Information Prescription Drug Monitoring Program (I-STOP) results: I-STOP not reviewed - Follow up/Referral - Patient Discharge Instructions Additional Instructions: Thank you for choosing [facility]. It was a pleasure taking care of you. Your abdominal ultrasound to evaluate for your was normal You may take Monistat insert for 7 days for your yeast infection Please continue follow-up with [facility] Return to the Emergency Department if your symptoms worsen or persist, you have fever, severe abdominal pain, vomiting, vaginal bleeding or other concerning symptoms. - Post Discharge Activity
== END 2019-03-10 17:55 | disposition home or self-care (01) ==
LOC: JER 15:43
PROC: BY49ZZZ Ultrasonography of First Trimester, Single Fetus (ICD-10-PCS; principal; 2019-03-10)
DX: O26.891 Other specified pregnancy related conditions, first trimester (principal); O98.811 Other maternal infectious and parasitic diseases complicating pregnancy, first trimester; B37.3 Candidiasis of vulva and vagina; Z3A.11 11 weeks gestation of pregnancy
CPT/HCPCS: 76815; 81003; 87086; 99282-25

== ENCOUNTER 2019-03-18 10:29 | Emergency (ER) | payer OTHER ==
[2019-03-18 10:35] VITALS: BMI 25.2
--- NOTE | 2019-03-18 11:11 | PDOC ---
History of Present Illness <Bruce Chiu - Last Filed: 03/18/19 12:38> - General History Source: Patient Exam Limitations: No Limitations - History of Present Illness Initial Comments: 03/18/19 11:08 29 yo F 12 weeks comes in c/o vaginal bleeding upon waking up this am with mild LLQ abdominal pain. She saw some pinkish-clear discharge upon wiping, no clots, no profuse bleeding. She is unsure if she is still bleeding now. No other complaints today, no fever/chills, no NVD, no change in appetite/urination , no burning/pain on urination. Pt has had a documented live IUP in this . LMP January 02. [id number] <Celeste Leung - Last Filed: 03/18/19 16:44> - General Chief Complaint: Vaginal Bleeding Stated Complaint: VAGINAL BLEEDING/12 WKS PRGT Time Seen by Provider: 03/18/19 10:55 Past History <Bruce Chiu - Last Filed: 03/18/19 12:38> - Past Medical History Anemia: No Asthma: No Cancer: No Cardiac Disorders: No CVA: No COPD: No CHF: No Dementia: No Diabetes: No GI Disorders: No Disorders: No HTN: No Hypercholesterolemia: No Liver Disease: No Seizures: No Thyroid Disease: No - Reproductive History (#): 3 Para: 0 - Immunization History Immunization Up to Date: Yes - Psycho Social/Smoking Cessation Hx Smoking Status: No Smoking History: Never smoked Years of Tobacco Use: 4 Have you smoked in the past 12 months: No Number of Cigarettes Smoked Daily: 10 If you are a former smoker, when did you quit?: 2 WEEKS AGO Cigars Per Day: 0 Information on smoking cessation initiated: No 'Breaking Loose' booklet given: 03/23/14 Hx Alcohol Use: No Drug/Substance Use Hx: No Substance Use Type: None <Celeste Leung - Last Filed: 03/18/19 16:44> - Past Medical History Allergies/Adverse Reactions: Allergies Allergy/AdvReac Type Severity Reaction Status Date / Time No Known Allergies Allergy Verified 03/18/19 10:31 Home Medications: Ambulatory Orders Vit No.124/Iron/Folic [ Vitamin Tablet] 1 each PO DAILY #90 tablet 01/20/19 Ondansetron HCl [Zofran] 4 mg PO TID PRN #12 tablet 02/22/19 Review of Systems - Review of Systems Able to Perform ROS?: Yes Constitutional: No: Chills, Fever, Malaise, Night Sweats HEENTM: No: Eye Pain, Recent change in vision, Throat Pain Respiratory: No: Cough, Shortness of Breath Cardiac (ROS): No: Chest Pain, Palpitations, Chest Tightness ABD/GI: Yes: Abdominal cramping. No: Diarrhea, Nausea, Vomiting : No: Dysuria, Hematuria Musculoskeletal: No: Back Pain Integumentary: No: Rash Neurological: No: Headache, Numbness, Dizziness Psychiatric: No: Change in Appetite Endocrine: No: Unexplained Weight Loss <Celeste Leung - Last Filed: 03/18/19 16:44> *Physical Exam - Vital Signs Last Vital Signs Temp Pulse Resp BP Pulse Ox 101 H 17 112/68 97 03/18/19 10:32 03/18/19 10:32 03/18/19 10:32 03/18/19 10:32 <Bruce Chiu - Last Filed: 03/18/19 12:38> - Vital Signs Last Vital Signs Temp Pulse Resp BP Pulse Ox 101 H 17 112/68 97 03/18/19 10:32 03/18/19 10:32 03/18/19 10:32 03/18/19 10:32 - Physical Exam General Appearance: Yes: Nourished. No: Apparent Distress HEENT: positive: MACI, Normal ENT Inspection, Normal Voice. negative: Pale Conjunctivae, Scleral Icterus (R), Scleral Icterus (L) Neck: positive: Supple. negative: Decreased range of motion, Tender midline Respiratory/Chest: positive: Lungs Clear, Normal Breath Sounds. negative: Respiratory Distress, Accessory Muscle Use Cardiovascular: positive: Regular Rhythm, Regular Rate Gastrointestinal/Abdominal: positive: Normal Bowel Sounds, Tender (mild suprapubic tenderness), Soft Musculoskeletal: positive: Normal Inspection. negative: CVA Tenderness, Decreased Range of Motion Extremity: positive: Normal Capillary Refill, Normal Inspection, Normal Range of Motion. negative: Tender, Pedal Edema Integumentary: positive: Normal Color, Dry. negative: Jaundice, Rash Neurologic: positive: Fully Oriented, Alert, Normal Mood/Affect <Celeset Leung - Last Filed: 03/18/19 16:44> ED Treatment Course - LABORATORY CBC & Chemistry Diagram: 03/18/19 11:24 03/18/19 11:24 - ADDITIONAL ORDERS Additional order review: Laboratory Results 03/18/19 03/18/19 03/18/19 11:24 11:24 11:24 Sodium 136 Potassium 3.6 Chloride 105 Carbon Dioxide 27 Anion Gap 5 L BUN 9.3 Creatinine 0.7 Est GFR (CKD-EPI)AfAm 136.66 Est GFR (CKD-EPI)NonAf 117.91 Random Glucose 85 Calcium 9.2 Total Bilirubin 0.4 AST 11 L ALT 26 Alkaline Phosphatase 59 Total Protein 6.8 Albumin 3.5 Beta HCG, Quant Urine Color Yellow Urine Appearance Cloudy Urine pH 6.5 Ur Specific [place] 1.025 Urine Protein Negative Urine Glucose (UA) Negative Urine Ketones Negative Urine Blood Negative Urine Nitrite Negative Urine Bilirubin Negative Urine Urobilinogen 0.2 Ur Leukocyte Esterase Negative Blood Type O POSITIVE Antibody Screen Negative 03/18/19 11:24 Sodium Potassium Chloride Carbon Dioxide Anion Gap BUN Creatinine Est GFR (CKD-EPI)AfAm Est GFR (CKD-EPI)NonAf Random Glucose Calcium Total Bilirubin AST ALT Alkaline Phosphatase Total Protein Albumin Beta HCG, Quant 58169.7 Urine Color Urine Appearance Urine pH Ur Specific [place] Urine Protein Urine Glucose (UA) Urine Ketones Urine Blood Urine Nitrite Urine Bilirubin Urine Urobilinogen Ur Leukocyte Esterase Blood Type Antibody Screen 03/18/19 11:24 RBC 4.53 MCV 89.8 MCHC 33.5 RDW 12.8 MPV 8.7 Neutrophils % 71.6 Lymphocytes % 21.3 Monocytes % 5.8 Eosinophils % 1.0 D Basophils % 0.3 <Bruce Chiu - Last Filed: 03/18/19 12:38> - LABORATORY CBC & Chemistry Diagram: 03/18/19 11:24 03/18/19 11:24 - RADIOLOGY Radiology Studies Ordered: Category Date Time Status TRANSVAGINAL US PREG [US] Stat Ultrasound 03/18/19 11:02 Ordered <Celeste Leung - Last Filed: 03/18/19 16:44> Medical Decision Making - Medical Decision Making The patient was seen and evaluated in conjunction with PAULINE Leung under my direct supervision, ancillary studies were reviewed. I independently interviewed and evaluated the patient and I agree with the plan as outlined by PAULINE Leung . <Bruce Chiu - Last Filed: 03/18/19 12:38> - Medical Decision Making 03/18/19 11:11 29 yo F 12 weeks w/ vaginal bleeding and LLQ abdominal pain. WIll check basic labs including type and screen, UA, Ucx, Will do a transvaginal sono and reassess 03/18/19 13:31 Tylenol ordered for pain, pt asked for pain meds. 03/18/19 13:31 Sono shows live IUP with HR 150 Type and screen O positive. Will discharge with OB follow up Return for worsening/concerning symptoms Pt verbalizes understanding and agrees with plan <Celeste Leung - Last Filed: 03/18/19 16:44> Discharge <Bruce Chiu - Last Filed: 03/18/19 12:38> - Discharge Information Problems reviewed: Yes <Celeste Leung - Last Filed: 03/18/19 16:44> - Discharge Information Clinical Impression/Diagnosis: Threatened Condition: Stable Disposition: HOME - Patient Discharge Instructions Patient Printed Discharge Instructions: DI for Vaginal Bleeding During Additional Instructions: Please return for worsening/concerning symptoms including bleeding more than a pad per hour, worsening abdominal pain, fever, vomiting. Please make a follow up appointment with your OBGYN in the next 2 days.
[2019-03-18 11:34] LABS: BASO % 0.3 % (0-2.0); HEMATOCRIT 40.7 % (32.4-45.2); HEMOGLOBIN 13.7 GM/dL (10.7-15.3); LYMPH % 21.3 % (8-40); MCH 30.1 pg (25.7-33.7); MCHC 33.5 g/dl (32.0-36.0); MEAN CELL VOLUME 89.8 fl (80-96); MEAN PLT VOLUME 8.7 fl (7.5-11.1); MONO % 5.8 % (3.8-10.2); NEUT % 71.6 % (42.8-82.8); PH,URINE 6.5 (5.0-8.0); PLATELET COUNT 223 K/MM3 (134-434); RBC 4.53 M/mm3 (3.60-5.2); RDW 12.8 % (11.6-15.6); URINE APPEARANCE CLOUDY; URINE BILIRUBIN NEGATIVE (NEGATIVE); URINE COLOR YELLOW; URINE GLUCOSE (UA) NEGATIVE (NEGATIVE); URINE KETONE NEGATIVE (NEGATIVE); URINE LEUK ESTERASE NEGATIVE (NEGATIVE); URINE NITRITE NEGATIVE (NEGATIVE); URINE PROTEIN NEGATIVE (NEGATIVE); URINE UROBILINOGEN 0.2 mg/dL (0.2-1.0); WHITE BLOOD COUNT 12.4 K/mm3 (4.0-10.0)
[2019-03-18 11:59] LABS: ALBUMIN 3.5 g/dl (3.4-5.0); BILIRUBIN,TOTAL 0.4 mg/dL (0.2-1); BLOOD UREA NITROGEN 9.3 mg/dL (7-18); CALCIUM 9.2 mg/dL (8.5-10.1); CREATININE 0.7 mg/dL (0.55-1.3); POTASSIUM 3.6 mmol/L (3.5-5.1); TOT PROT 6.8 g/dl (6.4-8.2)
[2019-03-18 13:28] VITALS: BP 110/62; PULSE 76; TEMP 98.1
[2019-03-18] MEDS ORDERED: ACETAMINOPHEN 325 MG TABLET (FP) PO ONE (13:31)
[2019-03-18] MEDS ORDERED: ACETAMINOPHEN 325 MG TABLET (FP) ONE (14:49)
== END 2019-03-18 14:58 | disposition home or self-care (01) ==
LOC: JER 10:29
DX: O26.891 Other specified pregnancy related conditions, first trimester (principal); O20.0 Threatened abortion; Z3A.12 12 weeks gestation of pregnancy
CPT/HCPCS: 36415; 76817-TC; 80053; 81003; 84702; 85025; 86850; 86900; 86901; 87086; 99282-25

== ENCOUNTER 2021-05-31 15:34 | Emergency (ER) | payer OTHER ==
[2021-05-31 15:59] VITALS: BP 116/76; PULSE 95; TEMP 98.6; BMI 27.4
[2021-05-31] MEDS ORDERED: IBUPROFEN 600 MG TABLET (FP) PO ONE ×2 (19:25→19:26)
[2021-06-04 01:06] LABS: SARS-CoV-2 NAA Detected (Not Detected)
== END 2021-05-31 20:00 | disposition home or self-care (01) ==
LOC: JER 15:34
DX: R07.9 Chest pain, unspecified (principal); R51.9 Headache, unspecified
CPT/HCPCS: 71046-TC-FY; 93005; 93010; 99285-25; C9803; U0003; U0005

== ENCOUNTER 2023-07-31 15:05 | Emergency (ER) | payer OTHER ==
[2023-07-31 15:14] VITALS: BP 118/71; PULSE 98; RESP 18; TEMP 98.4; BMI 30.7
[2023-07-31] MEDS ORDERED: ACETAMINOPHEN 325 MG TABLET (FP) ONE (16:01)
[2023-07-31] MEDS: ACETAMINOPHEN 500 MG TABLET (FP) PO ONE (16:09)
== END 2023-07-31 16:39 | disposition home or self-care (01) ==
LOC: JERFT 15:05
DX: T16.1XXA Foreign body in right ear, initial encounter (principal); H92.03 Otalgia, bilateral; R05.9 Cough, unspecified; R09.81 Nasal congestion; J06.9 Acute upper respiratory infection, unspecified; Z20.822 Contact with and (suspected) exposure to COVID-19
CPT/HCPCS: 0241U-QW; 99283-25